=== PATIENT | female | born 1990 ===

== ENCOUNTER 2023-05-03 15:00 | Emergency (ER) | payer MEDICAID, OTHER ==
[~2023-05-03] VITALS: Ht 165.1 cm; Wt 54.4 kg
[2023-05-03 15:06] VITALS: O2SAT 97
[2023-05-03] MEDS ORDERED: IV NORMAL SALINE 1000 ML BAG IV ONE (15:15)
[2023-05-03 15:31] LABS: *BILIRUBIN,URIN NEGATIVE (NEGATIVE); *BLOOD, URINE 2+ (NEGATIVE); *CLARITY,URINE CLEAR (CLEAR); *KETONES,URINE NEGATIVE (NEGATIVE); *UROBILINOGEN,URINE 0.2 E.U./dl (NORMAL); LEUKOCYTE ESTERASE ,URINE 1+ (NEGATIVE); NITRITE, URINE NEGATIVE (NEGATIVE); UGLUCOSE NEGATIVE (NEGATIVE)
[2023-05-03 15:32] LABS: *COLOR,URINE LIGHT YELLOW (YELLOW)
[2023-05-03 15:36] LABS: HEMATOCRIT 43.7 % (31.2-41.9); MEAN CORPUSCULAR HEMOGLOBIN 29.4 uug (24.7-32.8); MEAN CORPUSCULAR VOLUME 88.2 fL (75.5-95.3); PLATELET COUNT (AUTO) 342 K/uL (179-408)
[2023-05-03 15:37] LABS: CREATININE 0.7 mg/dL (0.6-1.3)
[2023-05-03 15:42] LABS: CREATINE KINASE, TOTAL 78 U/L (26-192)
[2023-05-03] MEDS ORDERED: IV NORMAL SALINE 500 ML BAG IV ONE ×2 (15:45→17:45)
[2023-05-03 15:47] LABS: MAGNESIUM 1.8 mg/dL (1.8-2.4); PHOSPHOROUS 2.8 mg/dL (2.5-4.9); TOTAL PROTEIN, SERUM 7.9 g/dL (6.4-8.2)
[2023-05-03 15:49] LABS: ACETAMINOPHEN < 10.0 ug/mL (10-30)
[2023-05-03 15:50] LABS: *URINE HCG, QUAL NEGATIVE (NEGATIVE)
[2023-05-03 15:53] LABS: BACTERIA,URINE MANY /HPF (NONE SEEN); RBC,URINE 20-50 /HPF (0-3); SQUAMOUS EPITHELIAL CELL,UR MODERATE /HPF (NONE SEEN)
[2023-05-03 15:55] LABS: *AMPHETAMINE, URINE NEGATIVE (NEGATIVE); *CANNABINOID, URINE NEGATIVE (NEGATIVE); *COCCAINE, URINE NEGATIVE (NEGATIVE); *PHENCYCLIDINE SCREEN,URINE NEGATIVE (NEGATIVE)
[2023-05-03] MEDS ORDERED: NITR100C11 PO (16:20)
[2023-05-03] MEDS ORDERED: PHEN-894 PO (17:25)
--- NOTE | 2023-05-03 17:52 | NUR ---
IV removed. Catheter intact and site benign. Pressure and 4x4 gauze applied to site. No bleeding noted. Pt eloped, pt called a [employer] ride and walked out of the ER with steady gait. Pt A/Ox3 upon leaving, spoke with ER physicain before leaving. Pt stated her ride is leaving so she can not wait to sign the AMA form.
== END 2023-05-03 18:33 | disposition left against medical advice (07) ==
LOC: ER 15:00
DX: F10.10 Alcohol abuse, uncomplicated (principal); R00.0 Tachycardia, unspecified; R74.01 Elevation of levels of liver transaminase levels; R51.9 Headache, unspecified; R07.89 Other chest pain; Z88.0 Allergy status to penicillin; Z79.899 Other long term (current) drug therapy; Y90.8 Blood alcohol level of 240 mg/100 ml or more
CPT/HCPCS: 80053; 81001; 82550; 84703; 83735; 84100; 85025; 84484; 36415; 71045; 70450; 99284; 96360; 87040; 80299; 80320; 80307; J7040 ×2; A4663; G0480

== ENCOUNTER 2023-08-16 17:31 | Emergency (ER) | payer MEDICAID ==
[~2023-08-16] VITALS: Ht 165.1 cm; Wt 72.6 kg
[~2023-08-16 17:31] MED LIST: NITR100C11 PO; PHEN-894 PO
[2023-08-16 17:40] VITALS: O2SAT 98
[2023-08-16] MEDS ORDERED: ALPR0.25 PO (17:48)
[2023-08-16] MEDS ORDERED: DEXT10TA7 PO (17:48)
[2023-08-16] MEDS ORDERED: CHLO25CA22 PO (17:52)
== END 2023-08-16 18:22 | disposition home or self-care (01) ==
LOC: ER 17:36
DX: F10.129 Alcohol abuse with intoxication, unspecified (principal); Z88.0 Allergy status to penicillin; Z79.899 Other long term (current) drug therapy; Y90.9 Presence of alcohol in blood, level not specified
CPT/HCPCS: A4606; A4663